=== PATIENT | male | born 1995 | race Caucasian/White ===

== ENCOUNTER 2019-08-15 22:19 | Emergency (ER) | payer SELFPAY ==
[~2019-08-15] VITALS: Ht 172.7 cm; Wt 82.0 kg
[2019-08-15] MEDS ORDERED: SODIUM CHLORIDE 0.9% 1,000 ML IV SCH (23:47)
[2019-08-15] MEDS ORDERED: MORPHINE SULFATE 4 MG/ML CPJ (NOT FOR IM USE) IV SCH (23:47)
[2019-08-15] MEDS ORDERED: ONDANSETRON HCL 4MG/2ML INJ IV SCH (23:47)
[2019-08-16 00:43] LABS: HEMATOCRIT. 37.9 % (42.0-52.0); HEMOGLOBIN. 12.9 g/dL (14.0-18.0); MEAN CORPUSCULAR VOLUME 82.6 fL (80.0-94.0); MEAN PLATELET VOLUME 8.7 fl (7.4-10.4); PLATELET 275 x1000/uL (130-400); RED BLOOD CELL COUNT 4.59 mill/uL (4.7-6.1); RED CELL DISTRIBUTION WIDTH 14.6 % (11.6-14.6)
[2019-08-16 00:49] LABS: CHLORIDE 105 mEq/L (98-107)
[2019-08-16 01:16] LABS: PLATELET ESTIMATE NORMAL
[2019-08-16 01:30] VITALS: BP 130/80
== END 2019-08-16 02:00 | disposition home or self-care (01) ==
LOC: ER 22:19
DX: K50.90 Crohn's disease, unspecified, without complications (principal); F91.8 Other conduct disorders; R03.0 Elevated blood-pressure reading, without diagnosis of hypertension
CPT/HCPCS: 36415; 80053; 83605; 83690; 85025; 96374; 96375; 99284; J2270; J2405